=== PATIENT | male | born 1985 | race American Indian/Alaskan Native ===

== ENCOUNTER 2018-01-07 16:22 | Emergency (ER) | payer OTHER ==
[2018-01-07] MEDS ORDERED: CATAPRES ONE (16:37)
[2018-01-07] MEDS ORDERED: CATAPRES PO ONE (16:39)
[2018-01-07 19:18] VITALS: BP 169/125
--- NOTE | 2018-01-07 20:15 | Cat Scan Report ---
FINAL REPORT PROCEDURE: CT HEAD/BRAIN WO CON TECHNIQUE: Computerized tomography of the head was performed without contrast material. HISTORY: elevated bp/ pino COMPARISON: No prior studies are available for comparison. FINDINGS: Skull and scalp: An oval lytic lesion measuring 1.7 x 1.1 centimeters is noted involving the left high parietal bone. Bones are osteoporotic.. Paranasal sinuses: Mild degree mucosal thickening is noted involving left frontal sinus.. Ventricles and subarachnoid spaces: Normal. Cerebrum: No evidence of hemorrhage, acute infarction or mass . Cerebellum and brainstem: No evidence of hemorrhage, acute infarction or mass. Vasculature: Normal. Comments: Adenoid hypertrophy is noted.. IMPRESSION: No acute intracranial abnormality Adenoid hypertrophy Left ethmoid chronic sinusitis Bones appear osteoporotic with a lytic lesion involving left high parietal bone. Clinical correlation is recommended to rule out any neoplastic process..
== END 2018-01-07 21:55 | disposition left against medical advice (07) ==
LOC: ED 16:22
DX: I10 Essential (primary) hypertension (principal); Z53.21 Procedure and treatment not carried out due to patient leaving prior to being seen by health care provider
CPT/HCPCS: 70450